=== PATIENT | female | born 1990 | race Caucasian/White ===

== ENCOUNTER 2020-04-23 20:42 | Emergency (ER) | payer OTHER ==
[~2020-04-23] VITALS: Ht 165.1 cm; Wt 62.6 kg
[2020-04-23] MEDS ORDERED: LABETALOL HCL100 MG (21:37)
[2020-04-23] MEDS ORDERED: VITAMIN C1000 MG (21:38)
[2020-04-23] MEDS ORDERED: PRENATAL (21:39)
== END 2020-04-24 04:54 | disposition home or self-care (01) ==
LOC: ER 20:42 → EDBD 21:11 → ER 21:11
DX: O20.0 Threatened abortion (principal)

== ENCOUNTER 2020-07-20 16:19 | Inpatient (IN) | payer OTHER ==
[~2020-07-20] VITALS: Ht 165.1 cm; Wt 64.0 kg
[~2020-07-20 16:19] MED LIST: LABETALOL HCL100 MG; PRENATAL; VITAMIN C1000 MG
[2020-07-20] MEDS ORDERED: PRENATAL TABLE1 EAC1 PO (17:43)
[2020-07-24] MEDS ORDERED: NIFEDIPINE10 MG PO (09:12)
[2020-07-24] MEDS ORDERED: CEFADROXIL500 MG PO (09:12)
== END 2020-07-24 10:53 | disposition home or self-care (01) | DRG 832 ==
LOC: OB/GYN 16:19 → LDR 16:19 → EDBD 16:19 → OB/GYN 07-21 09:36
PROVIDERS: ADMIT Obstetrics & Gynecology; ATTEND Obstetrics & Gynecology
PROC: 4A1HXFZ Monitoring of Products of Conception, Cardiac Rhythm, External Approach (ICD-10-PCS; principal; 2020-07-20)
PROC: BY4CZZZ Ultrasonography of Second Trimester, Single Fetus (ICD-10-PCS; 2020-07-21)
DX: O34.12 Maternal care for benign tumor of corpus uteri, second trimester (principal); O10.012 Pre-existing essential hypertension complicating pregnancy, second trimester; O23.42 Unspecified infection of urinary tract in pregnancy, second trimester; D25.9 Leiomyoma of uterus, unspecified; O46.8X2 Other antepartum hemorrhage, second trimester; Z3A.24 24 weeks gestation of pregnancy

== ENCOUNTER 2020-08-21 13:29 | Outpatient (CLI) | payer OTHER ==
[~2020-08-21 13:29] MED LIST changes: +CEFADROXIL500 MG PO; +NIFEDIPINE10 MG PO; +PRENATAL TABLE1 EAC1 PO
[2020-08-21] MEDS ORDERED: ECOTRIN81 MG PO (13:50)
[2020-08-21] MEDS ORDERED: VALTREX1000 MG PO (13:52)
== END 2020-08-22 14:30 | disposition home or self-care (01) ==
LOC: OBS/DEL 13:29
PROVIDERS: ATTEND Obstetrics & Gynecology
DX: O10.013 Pre-existing essential hypertension complicating pregnancy, third trimester (principal); O34.13 Maternal care for benign tumor of corpus uteri, third trimester; O46.8X3 Other antepartum hemorrhage, third trimester; D25.9 Leiomyoma of uterus, unspecified; Z3A.29 29 weeks gestation of pregnancy

== ENCOUNTER 2020-10-24 10:54 | Inpatient (IN) | payer OTHER ==
[~2020-10-24] VITALS: Ht 165.1 cm; Wt 68.5 kg
[~2020-10-24 10:54] MED LIST changes: +ECOTRIN81 MG PO; +VALTREX1000 MG PO
[2020-10-24] MEDS ORDERED: NIFEDIPINE10 MG PO (11:53)
[2020-10-24] MEDS ORDERED: OCUVITE EYE HE1 EACH PO (11:53)
[2020-10-24] MEDS ORDERED: PRENATAL TABLE1 EAC1 PO (11:53)
[2020-10-24] MEDS ORDERED: LABETALOL HCL100 MG PO (11:54)
[2020-10-24] MEDS ORDERED: CHILDREN'S ASPI81 MG PO (11:54)
[2020-10-24] MEDS ORDERED: VALACYCLOVIR1000 MG PO (11:54)
[2020-10-26] MEDS ORDERED: PRENATAL VITAM1 EAC3 (11:47)
== END 2020-10-27 14:30 | disposition home or self-care (01) | DRG 787 ==
LOC: OB/GYN 10:54 → LDR 10:54 → O/R 13:26 → OB/GYN 14:15
PROVIDERS: ADMIT Obstetrics & Gynecology; ATTEND Obstetrics & Gynecology
PROC: 4A1HXFZ Monitoring of Products of Conception, Cardiac Rhythm, External Approach (ICD-10-PCS; 2020-10-24)
PROC: 10D00Z1 Extraction of Products of Conception, Low, Open Approach (ICD-10-PCS; principal; 2020-10-24 10:30)
DX: O65.5 Obstructed labor due to abnormality of maternal pelvic organs (principal); O10.02 Pre-existing essential hypertension complicating childbirth; O34.13 Maternal care for benign tumor of corpus uteri, third trimester; D25.9 Leiomyoma of uterus, unspecified; Z3A.38 38 weeks gestation of pregnancy; Z37.0 Single live birth; Z20.822 Contact with and (suspected) exposure to COVID-19